=== PATIENT | male | born 1940 | race Caucasian/White ===

== ENCOUNTER 2018-09-10 01:37 | Outpatient (CLI) | payer MEDICARE, BC, SELFPAY ==
[2018-09-10 08:14] LABS: CREATININE 1.19 mg/dL (0.70-1.30); Estimated GFR 58.97 (mL/min/1.73m2); Potassium 4.7 mmol/L (3.5-5.1)
== END 2018-09-10 01:57 ==
PROVIDERS: PCP Family Medicine; Visit Provider Family Medicine
DX: I10 Essential (primary) hypertension (principal); E11.9 Type 2 diabetes mellitus without complications
CPT/HCPCS: 36415; 82565; 83036; 84132

== ENCOUNTER 2018-12-24 07:53 | Outpatient (CLI) | payer MEDICARE, BC, SELFPAY ==
[2018-12-24 08:38] LABS: Hemoglobin A1C 8.3 % (4.5-6.2)
[2018-12-24 09:16] LABS: CREATININE 1.04 mg/dL (0.70-1.30)
== END 2018-12-24 08:13 ==
PROVIDERS: PCP Family Medicine; Visit Provider Family Medicine
DX: E11.9 Type 2 diabetes mellitus without complications (principal)
CPT/HCPCS: 36415; 82565; 83036

== ENCOUNTER 2019-01-23 14:33 | Outpatient (CLI) | payer MEDICARE, BC, SELFPAY ==
--- NOTE | 2019-01-23 14:27 | DI.RAD_ITS ---
SYMPTOMS/DIAGNOSIS: RIGHT HIP PAIN S/P LEFT TOTAL HIP ARTHROPLASTY AP PELVIS: The patient is status post TRAE, the prosthesis in good position, surrounding bone intact.
== END 2019-01-23 14:53 ==
PROVIDERS: PCP Family Medicine; Referring Provider Family Medicine; Visit Provider Orthopaedic Surgery
DX: M25.551 Pain in right hip (principal); Z96.642 Presence of left artificial hip joint
CPT/HCPCS: 99211; 99213; 72170

== ENCOUNTER 2019-02-19 11:02 | Outpatient (CLI) | payer MEDICARE, BC, SELFPAY ==
--- NOTE | 2019-02-19 10:50 | DI.RAD_ITS ---
SYMPTOMS/DIAGNOSIS: RIGHT HIP PAIN RIGHT HIP: Two views were obtained. There is marked loss of the cartilaginous joint space of the hip. Moderate hypertrophic spurring of the acetabulum and to a lesser degree femoral head noted. Mild spurring noted at the greater trochanter of the femur. CONCLUSION: Severe DJD, right hip.
== END 2019-02-19 11:22 ==
PROVIDERS: PCP Family Medicine; Referring Provider Family Medicine; Visit Provider Student in an Organized Health Care Education/Training Program
DX: M25.551 Pain in right hip (principal); M16.11 Unilateral primary osteoarthritis, right hip; E11.9 Type 2 diabetes mellitus without complications; Z79.84 Long term (current) use of oral hypoglycemic drugs; I10 Essential (primary) hypertension
CPT/HCPCS: 99214; 73502

== ENCOUNTER 2019-03-28 09:57 | Outpatient (CLI) | payer MEDICARE, BC, SELFPAY ==
[2019-03-28 11:35] LABS: HCT 38.8 % (40.0-50.0); HGB 12.6 g/dL (13.5-17.5); Mean Corp. HGB Concentration 32.5 g/dL (32.0-36.0); Mean Corpuscular Hemoglobin 30.6 pg (27.0-33.0); Mean Corpuscular Volume 94.2 fL (80-95); Mean Platelet Volume 9.1 fL (8.0-11.0); Platelet Count 271 x1000/uL (130-400); RBC 4.12 m/cumm (4.50-6.00); RBC Distribution Width 14.4 % (11.8-14.1); White Blood Cell Count 7.75 k/cumm (4.4-10.8)
[2019-03-28 12:01] LABS: Anion Gap 11.3 mmol/L (3-11); BUN 17 mg/dL (7-18); CO2 25.7 mmol/L (21.0-32.0); CREATININE 0.85 mg/dL (0.70-1.30); Calcium 9.2 mg/dL (8.5-10.1); Chloride 102 mmol/L (98-107); Glucose 73 mg/dL (70-100); Potassium 4.6 mmol/L (3.5-5.1); Sodium 139 mmol/L (136-145)
--- NOTE | 2019-03-28 15:05 | W.PREOPHP ---
Date of service: 03/28/19 Assessment and Plan (1) Primary osteoarthritis of right hip: Current visit: No Status: Chronic Right total hip replacement. Details of surgery were discussed with patient as well as risks and pertinent anatomy. All questions were answered. History of Present Illness Chief Complaint: Right hip pain Narrative: Russell is a 79-year-old male who comes in today for a preop history and physical for a right total hip replacement. He has been complaining of complaining of right hip pain for many years now. He is a previous patient of Dr. Wright, and has had multiple joint replacements including bilateral knees and a left hip, and has known arthritis of the right hip. He has been dealing with his right hip pain for a couple of years now, but has gotten much worse over the last 6 months or so. He states that he has some difficulty putting on shoes and socks and that he has to use assistive devices in order to be able to put socks and shoes on. He avoids any shoes with laces as he is unable to tie them. He has groin pain especially with prolonged standing or walking, which also bothers him at the end of the day and at night. He does have x-rays of his right hip which show severe arthritis with complete loss of joint space in the hip joint. There are also bone spurs throughout the hip joint including the acetabulum and femoral neck. He has discussed a total hip replacement with Dr. Wright, but since Dr. Wright is retiring, he was referred here for a total hip replacement on the right side. He has done very well from both of his total knee replacements, and his left total hip replacement. Since the pain is starting to get in the way of his daily life, and he has done well from multiple joint replacements in the past, Dr. Carrillo does offer a right total hip replacement, and Russell is anxious to proceed. Pertinent Surgical Information Russell has a history of diabetes which has been pretty well controlled, but his A1c has been rising until December of this year where it was an 8.3. Since then he has started insulin therapy and his glucose monitoring has been much better than it was prior to this. He should have an A1c drawn and interpreted prior to surgery. 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 He has had a left total knee replacement and a right total knee replacement since then. Patient denies history of CVA, MN, angina, asthma, COPD, renal or liver disorders, hepatitis, bleeding disorders, immune or thyroid disorders. No complications from anesthesia. Review of Systems Constitutional Denies fever(s) ENT Denies dizziness and Denies sore throat Cardiovascular Denies chest pain, Denies palpitations and Denies dyspnea Respiratory Denies cough and Denies dyspnea Gastrointestinal Denies abdominal pain, Denies melena, Denies hematochezia, Denies diarrhea, Denies nausea and Denies vomiting Genitourinary Denies hematuria and Denies dysuria Neurologic Denies dizziness Endocrine Denies palpitations PFSH Medical History Diabetes Hyperlipidemia Hypertension Knee pain Overweight Surgical History Arthroplasty of knee Extraction of cataract H/O detached retina repair (Acute) Repair of umbilical hernia Replacement of total knee joint (04/12/16) Total replacement of hip (~2005) Family History Mother Diabetes Father Heart disease Maternal Grandmother Diabetes Personal history of malignant neoplasm Daughter Fibromyalgia Social History Smoking/Tobacco Use Status: Former Tobacco Use Quit Date: 05/02/75 Second Hand Exposure: Yes Alcohol Intake: current Alcohol Intake frequency: 0-2 drinks per day Alcohol type: beer, wine and hard liquor Drug use: Never Caregiver/Support person: No Household members: spouse Housing: house Pets and animals: No Sexually active: No Current gender identity: male What is your relationship status?: How often do you talk on the phone with friends or family?: once per week How often do you get together with friends or relatives?: decline to answer How often do you attend hindu or episcopal services?: decline to answer Do you belong to any clubs or organized social groups?: yes Panel score (0-1 are the most socially isolated patients): 2 Laura/Latter-Day: Orthodoxy Special laura needs: No Meds Home Medications Medication Instructions Recorded Confirmed Type loratadine 10 mg PO DAILY PRN #90 tab-cap 10/25/12 03/28/19 History cyanocobalamin (vitamin B-12) 1,000 mcg PO DAILY 07/06/14 03/28/19 History aspirin 81 mg PO BID tab-cap 10/06/14 03/28/19 History blood sugar diagnostic [Blood #300 strip 06/20/16 03/28/19 History Glucose Test] albuterol sulfate [Proventil Hfa] 2 puff INHALATION Q4H PRN #1 09/11/17 03/28/19 Rx inhaler lisinopril 1 tab PO BID #180 tab 03/19/18 03/28/19 Rx acetaminophen 650 mg 1,300 mg PO BID tab 09/17/18 03/28/19 History tablet,extended release simvastatin 40 mg tablet 40 mg PO QHS #90 tab-cap 09/17/18 03/28/19 Rx nystatin 100,000 unit/gram topical 1 applic TP BID #30 gm 12/09/18 03/28/19 Rx powder dulaglutide 0.75 mg/0.5 mL 0.75 mg SC QWEEK #2 ml 12/10/18 03/28/19 Rx subcutaneous pen injector budesonide 180 mcg/actuation 180 mcg INHALATION BID #3 inhaler 12/13/18 03/28/19 Rx breath activated powder inhaler glimepiride 2 mg tablet 4 mg PO QAM #180 tab-cap 12/13/18 03/28/19 Rx metformin 1,000 mg tablet 1,000 mg PO BID #180 tab-cap 12/13/18 03/28/19 Rx naproxen sodium [Aleve] 440 mg PO BID 03/28/19 03/28/19 History Allergies Allergy/AdvReac Type Severity Reaction Status Date / Time No Known Allergies Allergy Unverified 02/19/19 10:21 Exam [facility] Head: normocephalic and atraumatic General nose exam: no nasal discharge Eyes Conjunctivae: conjunctivae normal Sclera: sclerae normal Resp Effort & Inspection: normal respiratory effort Auscultation: clear to auscultation bilaterally and no wheezes Cardio Rate: regular rate Rhythm: regular rhythm Heart Sounds: S1 normal, S2 normal and no murmurs GI Palpation: soft, no hepatosplenomegaly and nontender Auscultation: normal bowel sounds Results Labs : 03/28/19 11:10 03/28/19 11:10 Laboratory Results - last 24 hr 03/28/19 03/28/19 03/28/19 11:10 11:10 11:10 WBC 7.75 RBC 4.12 L Hgb 12.6 L Hct 38.8 L MCV 94.2 MCH 30.6 MCHC 32.5 RDW 14.4 H Plt Count 271 MPV 9.1 Sodium 139 Potassium 4.6 Chloride 102 Carbon Dioxide 25.7 Anion Gap 11.3 H BUN 17 Creatinine 0.85 Estimated GFR/1.73 m2 >= 60.00 Glucose 73 Calcium 9.2 Patient ABO/Rh O Positive Antibody Screen Negative
== END 2019-03-28 10:17 ==
PROVIDERS: PCP Family Medicine; Visit Provider Student in an Organized Health Care Education/Training Program
DX: M25.551 Pain in right hip (principal); M16.11 Unilateral primary osteoarthritis, right hip; K21.9 Gastro-esophageal reflux disease without esophagitis; J44.9 Chronic obstructive pulmonary disease, unspecified; Z01.812 Encounter for preprocedural laboratory examination; Z01.818 Encounter for other preprocedural examination
CPT/HCPCS: 36415; 80048; 85027; 86850; 86900; 86901; NC

== ENCOUNTER 2019-03-31 08:39 | Outpatient (CLI) | payer MEDICARE, BC, SELFPAY ==
[2019-03-31 12:12] LABS: Hemoglobin A1C 6.5 % (4.5-6.2)
== END 2019-03-31 08:59 ==
PROVIDERS: PCP Family Medicine; Visit Provider Student in an Organized Health Care Education/Training Program
DX: E11.9 Type 2 diabetes mellitus without complications (principal)
CPT/HCPCS: 36415; 83036

== ENCOUNTER 2019-04-08 05:52 | Inpatient (IN) | payer MEDICARE, BC, SELFPAY ==
[2019-04-08] VITALS (18 sets, daily range): BP systolic 85–139; BP diastolic 43–89; PULSE 48–64; RESP 10–20; TEMP 34.8–36.6; O2SAT 93–98
[2019-04-08] MEDS: Acetaminophen 500 MG TAB 1000 MG PO ×3 (06:32→20:22)
[2019-04-08] MEDS: oxyCODONE-CR 10 MG TABCR PO (06:32)
[2019-04-08] MEDS: Celecoxib 200 MG CAP 400 MG PO (06:32)
[2019-04-08] MEDS: Lactated Ringers 1,000 ML 80 ML IV ×3 (06:33→20:53)
[2019-04-08] MEDS: ceFAZolin 2 GM/50 ML BAG IVPB (07:46)
[2019-04-08] MEDS: Normal Saline 20 ML VIAL (09:29)
[2019-04-08] MEDS: Bupivacaine 0.25% Pres-Free 30 ML VIAL (09:29)
[2019-04-08] MEDS: Ketorolac 30 MG/ML VIAL (09:29)
--- NOTE | 2019-04-08 09:40 | DI.RAD_ITS ---
SYMPTOM/DIAGNOSIS: OSTEOARTHRITIS RIGHT HIP C-ARM FLUOROSCOPY: Fluoroscopy Time: 38.2 sec 4.7 mGy Fluoroscopy was provided for Dr. Carrillo in the O.R. Hard copy images show placement of a right hip prosthesis. Please see procedure note for details.
--- NOTE | 2019-04-08 09:46 | W.PM.OP ---
Date of service: 04/08/19 Time of Service: 09:46 Operative Note DATE OF PROCEDURE: 04/08/19 PRE-OP DIAGNOSIS: Right Hip Osteoarthritis POST-OP DIAGNOSIS: same PROCEDURE: Right Anterior Total Hip Arthroplasty SURGEON: Rashaad Carrillo WEIGHT CONTROL ENGINEER: Terry Hall ANESTHESIA: spinal ESTIMATED BLOOD LOSS: 400 PATHOLOGY: none sent COMPLICATIONS: None Patient was transported to: PACU Patient's condition: stable Implants: 1. Depuy Montague Acetabular Component, 56mm 2. Depuy Acetabular Liner, 07a05ps, +4 lateralized 3. Depuy Corail Standard Collared Femoral Stem, Size 14 4. Depuy Altrx Ceramic Femoral Head, Size 36+5mm Indications: I have seen Russell in clinic for symptoms of hip arthritis, confirmed with radiographic findings. He has exhausted nonoperative methods and was having significant limitations in daily function and desired better function and less pain. I discussed the technical details of a hip replacement. I explained the risks of the procedure to include, but not limited to, bleeding, infection, pain, stiffness, fracture, damage to nerves and vessels, damage to muscles and tendons, loosening, instability, leg length inequality, need for repeat procedure, blood clot and cardiopulmonary demise. Despite these risks, Russell elected to proceed. Findings: There was significant signs of arthritis throughout the hip. [Details] Procedure Description: Russell was greeted in the preoperative holding area where the correct side was identified and marked. The consent was reviewed with the patient and signed. The history and physical was updated. All questions were answered. He was taken back to the operating room. A spinal anesthestic was then administered. The patient was placed into the supine position on the operating room table. The patient was then positioned onto the ARCH table. Both feet were wrapped with [place]brill cotton wrap along with Coban. The feet were placed in specialized boots for the ARCH table, well seated within the boot and secured. SCDs were applied. The patient was then slid down onto a peroneal post and the nonoperative leg was secured in a leg sofia attached to the table. The operative side was placed into the ARCH table attachment and bed height and positioning was secured. A preoperative AP pelvis was obtained to serve as a reference for determining leg lengths. Prophylactic antibiotics in the form of Cefazolin were administered. 1g of Tranxemic Acid was given intravenously within 30 minutes of incision. The right leg was then prepped with Chloraprep and draped in a standard fashion with a large shower-curtain type drape with Iodine impregnated skin protection. A timeout to confirm correct identity, side and site, procedure, allergies, anesthesia, and medical concerns was performed. An obliquely oriented incision was made starting lateral to the ASIS and running distal over the Tensor Fascia Zulay (TFL) muscle belly toward the fibular head, approximately 10cm. The skin and soft tissue was dissected sharply, through Paco?s fascia, and to the fascia of the TFL. With the fascia and superior border of the IT band identified, the fascia was incised with a new knife just above any perforators from the IT band. The TFL muscle belly was bluntly dissected away from the fascia and moved laterally. The fat between TFL and rectus was identified to ensure the dissection was not within the TFL. Blunt dissection created space between abductors and the capsule and retractor was placed over the lateral femoral neck. The fibers of the rectus femoris tendon were identified and these were freed from the anterior capsule. A second cobra retractor was placed around the medial femoral neck. The TFL was further retracted laterally to show the deep fascia. Careful dissection through this layer identified three main crossing vessels of the lateral femoral circumflex. These were cauterized in multiple locations and then cut without any noticeable bleeding. The TFL was further released bluntly from the deep fascia to expose anterior hip capsule and fat The Florian orthopaedic retractor was then placed beneath the TFL and against sartorius and medial soft tissues to protect and retract the soft tissues. A T-capsulotomy was then performed starting at the superior lateral acetabulum and moving distally to the intertrochanteric ridge. These capsular flaps were tagged with a No. 1 Ethibond and elevated from within. The capsular flaps were released to the shoulder of the lateral neck and to the lesser trochanter to give excellent visualization of the proximal femur. A neck osteotomy was performed using an oscillating saw based on preoperative templates. This cut started in the shoulder and of the lateral neck and exited medially. The saw was at all times directed medially to avoid injury to the greater trochanter. 6cm of traction was applied to the leg and the osteotomy opened. The femoral head was removed with a corkscrew, making sure to protect the TFL on its exit. This was measured on the back table to determing the starting reamer size. Portions of the rectus obscuring visualization were minimally elevated off the superior acetabulum. An anterior retractor was placed over the anterior wall between capsule and labrum. A posterior retractor was placed similarly. This provided excellent visualization. The contents of the cotyloid fossa were removed with electrocautery and the labrum was removed with a knife. There was a notable floor osteophyte. There was significant chondromalacia of the superior acetabulum. Acetabular reaming began with a 51mm reamer. This first reaming was directed anterior to posterior and medial to get down to the true floor. This was inspected and reamed until the true floor was reached. I then reamed sequentially up to a 55mm reamer where good fit was obtained. The larger reamers were oriented based on anatomical reference of the anterior and lateral white to ensure proper abduction and anteversion. Positioning and size was confirmed with the fluoroscopy. A 56mm Depuy Montague acetabular component was selected. The acetabulum was reamed around the periphery with the selected acetabular size to prevent a rim fit. The deep tissues were irrigated. The acetabular component was then impacted in a position of about 40-45 degrees of abduction and 15-20 degrees of anteversion, using the patient?s anatomy as the ultimate landmark. Fluoroscopy was used to confirm this. There was excellent reefer truck driver of the acetabular component and the inserting handle was removed. The acetabular liner, Depuy [id number] polyethylene liner, was inserted and lined up with the tines of the acetabular component. There was no soft tissue interposition. The liner was then impacted into position and confirmed to be well-seated. A portion of the shakir-articular cocktail was then injected around the acetabulum into the capsule and periosteum. This cocktail consisted of 50cc of 0.25% Bupivicaine and 20cc of Exparel, expanded to a total of 120cc. Traction was released from the femur. The leg was rotated to 120 degrees. Any remaining medial capsule was released until the lesser trochanter was easily palpable. A Arias retractor was placed medially. The lateral capsule was further released into the shoulder to allow access to the greater trochanter. A Arias retractor was placed over the greater trochanter which allowed the trochanter to flip in front of the capsule for excellent exposure. The leg was brought down into maximal extension and 20 degrees of adduction while ensuring there was no impingement on the acetabulum. Any remnant capsule within the trochanter was released. Piriformis and obturator externis were identified and protected. There was excellent access to the proximal femur. The lateral neck remnant was removed with a rongeur. A blunt canal probe was used to identify the canal and trajectory for later broaching. A box osteotome initiated the broach course. A small curved rasp and a curved curette were used to work laterally. Broaching then began with a size 8 Corail broach. This was inserted manually around the trochanter and into the canal before mallet blows. The broach was seated to a few millimeters below the cut level based on the neck cut and the preoperative template. Sequential broaching was continued using the [employer] mechanical swahili teacher until a tight fit was obtained with good rotational control of the femur. A trial standard neck was inserted along with a +5 trial head. The leg was brought out of extension and adduction and then reduced with traction and internal rotation. The leg was stable anteriorly in a position of 30 degrees of extension and 90 degrees of external rotation. Fluoroscopy was used to ensure there was no fracture and the stem was seated well. Leg lengths were checked with an AP pelvis and pelvic reference points. Once content with the desired offset and leg lengths, the leg was brought back into extension, external rotation and adduction. The periosteum and surrounding tissue was injected with remaining portion of the shakir-articular cocktail. The proximal femur was irrigated as well as the deep tissues. The Depuy Corail standard collared stem, size 14, was then manually inserted into the proximal femur making sure to control rotation. It was then malleted into position with light blows, giving breaks to allow bone expansion and decrease risk of fracture. The selected Depuy Altrx Ceramic Head, size 36+5mm, was then placed onto the clean and dry trunnion and secured with impaction onto the tapered fit. The leg was brought back out of extension and adduction and reduced with traction and internal rotation. Stability was confirmed with no shuck at 90 degrees of external rotation and 30 degrees of extension. No impingement through range of motion arc. Final x-ray images were obtained with fluoroscopy to confirm adequate positioning and no intraoperative fracture. The deep tissues were thoroughly irrigated with a pulse lavage. The second dose of TXA 1g was administered intravenously.The capsule was then reapproximated with the previously placed Ethibond sutures. The TFL fascia was finally closed with a No. 2 Stratafix, barbed suture. Deep tissues were then reapproximated with 0 Vicryl and a running 2-0 Vicryl. The skin was closed with a running 4-0 Monocryl in a subcuticular fashion. This was reinforced with skin glue. A Mepilex silver dressing was applied. At the end of the case, all counts were correct. Russell was transferred to the hospital bed without difficulty and suffering no apparent complication. Russell has a good prognosis. Physical therapy will start today and without restrictions, weight-bearing as tolerated. Aspirin 81mg BID will be used for DVT prophylaxis.
--- NOTE | 2019-04-08 10:15 | DI.RAD_ITS ---
SYMPTOM/DIAGNOSIS: S/P RIGHT TRAE PORTABLE PELVIS: The patient is status post placement of a right hip prosthesis. The components appear well aligned. There is a left hip prosthesis which does not appear changed when compared with previous exam of 23 January 2019.
[2019-04-08] MEDS: oxyCODONE 5 MG TAB PO ×2 (13:51→20:48)
--- NOTE | 2019-04-08 16:20 | IN_ITS ---
Date of service: 04/08/19 Time of Service: 13:17 PT Notes Inpatient Physical Therapy Evaluation Date: 04/08/2019 Referring Doctor: Rashaad Carrillo MD PT Orders: PT CONSULT: S/P R Anterior TRAE Precautions: fall. Standard. WBAT on R LE. Patient Profile/Admitting Diagnosis: Patient is a 79-year-old male presenting with primary osteoarthritis of the R hip S/P R Anterior TRAE on POD 0. 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 He states that there is a ramp to enter the home but there is a patch of grass he must maneuver through to approach the ramp. Mr. Shepard states that he has arranged his home to fit all of his needs onto the first floor. He states that once he is comfortable enough, he will return his home back to its normal state and use the (13) stairs. He reports that he was independent with all ADLs prior to the surgery. He reports using a cane for outdoor ambulation only. Current Functional Limitations: Pain with prolonged standing, decreased gait speed, decreased strength of the R LE. Equipment Owned/DME: Front-wheeled walker Subjective: Mr. Shepard reported 0/10 pain while laying supine. He consented to PT treatment. He did not report any dizziness or lightheadedness until he was standing. During ambulation to the door, the patient reported having some nausea, but appeared better when he returned to bed. Objective: General Observation: The patient was seen laying supine in bed with the head of the bed elevated. IV in R UE. Toscano catheter in place. The patient also had Mepilex AG over surgicial incision and bilateral antithrombiembolism pumps to B legs. Mental Status: Alert and oriented x 4 Pain: 0/10 in supine, 3/10 during ambulation Vital Signs: Negative for orthostatic hypotension Position Vitals Supine BP: 122/78mmHg SaO2: 98% on 2L/min HR: 51 BPM Seated BP: 141/70mmHg: SaO2: 99% on 2L/min HR: 52 BPM Standing BP: 133/62mmHg: SaO2: 95% HR: 53 BPM Post 30-foot Walk BP: 128/65mmHg: SaO2: 98% on 2L/min HR: 46 BPM ROM: Right Lower Extremity: Hip flexion WFL. Hip abduction WFL. Knee flexion WFL. Ankle dorsiflexion WFL. Ankle plantarflexion WFL. Left Lower Extremity: Hip flexion WFL. Hip abduction WFL. Knee flexion WFL. Ankle dorsiflexion WFL. Ankle plantarflexion WFL. Strength: Right Lower Extremity: Hip flexors 3-/5. Hip abductors N/T. Knee flexors 5/5. Knee extensors 5/5. Ankle dorsiflexors WFL. Ankle plantarflexors WFL. Left Lower Extremity:Hip flexors 5/5. Hip abductors N/T. Knee flexors 5/5. Knee extensors 5/5. Ankle dorsiflexors 5/5. Ankle plantarflexors 5/5. Sensation: N/T due to spinal anesthetic. Bed Mobility/Transfers: Rolling: S Supine to sit: S Sit to supine: S Sit to stand: S Stand to sit: CGA Bed to chair: CGA Chair to bed: CGA Gait: Patient tolerated 30 feet of level surface ambulation with a front-wheeled walker with CGA and minimal verbal cues to instruct the patient for use of the assistive device during gait activities. The patient reported lightheadedness and nausea while returning to the bed. He was instructed through pursed-lip breathing and successfully transferred back to bed with minimal assistance. Balance: Static Sitting: Good Dynamic Sitting: Good Static Standing: Good Dynamic Standing: Fair Special Tests: Mobility Limitations Standardized Measure [facility] AM-PAC 6 clicks Basic Mobility Inpatient Short Form: Raw Score: 19 CMS Score: 43% Informed Consent/Education: Patient instructed in purpose of PT consult and plan of care. Patient was instructed to perform 30 ankle pumps, 10 quad sets, and 10 glute sets per hour. Assessment: Patient presents with clinical signs and symptoms consistent with current/admitting diagnoses that have resulted to mobility limitations, gait instability, generalized weakness, and impairment of motor control as d emonstrated by the following impairment level findings: 1. Decreased strength to R LE major muscle groups 2. Impaired activity tolerance 3. Decreased gait speed Impairments are contributing to the following functional limitations: 1. Inability to safely ambulate without assistive device and physical assistance 2. Increase completion time for mobility ADL performance 3. Increased fall risk Patient is assessed as a 56532 moderate complexity based on the following: History: Patient is an 79-year-old male with past medical history of arthritis with increasing pain and diminishing acetabulofemoral joint space diagnosed via radiographs. He presented to med/surg unit on 04/08/2019 with chief presentation of post-operative mobility impairments. Examination: Demonstrable impairment in balance, coordination and strength deficit with underlying impairments and functional limitations as documented above Presentation: Evolving Decision Makin moderate complexity Goals: 1-3 Days 1. Supine-Sit independent 2. Sit-Supine independent 3. Sit-Stand independent 4. Stand-Sit independent 5. Bed-Chair independent 6. Chair-Bed independent 7. Independent gait on level surface with use of least restrictive device for at least 300 feet without report of pain nor dyspnea 8. Independent with home exercise program 9. Good static and dynamic standing balance/tolerance. Plan of Care/Treatment Plan: 2x/day, 2-3 days/week x 1 week. Plan of care has been reviewed with the RUBBER CUTTER providing the service under Physical Therapy direction. Initiate Physical Therapy intervention for strengthening, bed mobility, transfers, gait, stairs, balance training, use of assistive device. DISCHARGE RECOMMENDATIONS: May benefit from skilled physical therapy services according to orthopedic surgeon's timeline recommendations. Patient will be educated and trained on home exercise program per TKA exercise protocol in preparation for outpatient physical therapy services. Patient will be discharged to home under the care of his after all of the above goals are met. TREATMENT CODE/TIME: 08743 x 35 minutes at 13:17, 61630 x 15 minutes at 13:52. Thank you very much for this referral. Renzo Overton, [facility] Duplicating Machine Servicer Under the supervision of: Gloria Nation PT, DPT, CLT [facility]
--- NOTE | 2019-04-08 16:25 | NUR.NOTE ---
Pt transferred to rm 229 post op right hip via bed from PACU, report from RN, Roula. Pt A&O x4, denies pain, settled in room, post op vitals initiated, call pan with in reach, in .
[2019-04-08] MEDS: Insulin Aspart 300 UNITS/3 ML PEN SC (17:08)
[2019-04-08] MEDS: Celecoxib 200 MG CAP PO (20:23)
[2019-04-08] MEDS: Aspirin E.C. 81 MG TABEC PO (20:23)
[2019-04-08] MEDS: Simvastatin 40 MG TAB PO (20:23)
[2019-04-09 02:20] VITALS: BP 113/63; PULSE 61; RESP 17; TEMP 36.5; O2SAT 93
[2019-04-09 07:32] VITALS: BP 121/66; PULSE 62; RESP 18; TEMP 36.7; O2SAT 96
[2019-04-09] MEDS: Mometasone 220 MCG 14 DOSE INHALER IH (07:50)
[2019-04-09] MEDS: Pantoprazole 40 MG TABCR PO (08:29)
[2019-04-09] MEDS: Celecoxib 200 MG CAP PO (08:29)
[2019-04-09] MEDS: Glimepiride 2 MG TAB 4 MG PO (08:29)
[2019-04-09] MEDS: metFORMIN 500 MG TAB 1000 MG PO (08:29)
[2019-04-09] MEDS: Cyanocobalamin 500 MCG TAB 1000 MCG PO (08:30)
[2019-04-09] MEDS: Aspirin E.C. 81 MG TABEC PO (08:30)
[2019-04-09] MEDS: Acetaminophen 500 MG TAB 1000 MG PO ×2 (08:30→13:56)
[2019-04-09] MEDS: Lisinopril 20 MG TAB PO (08:30)
[2019-04-09] MEDS: Insulin Aspart 300 UNITS/3 ML PEN SC ×2 (08:31→11:47)
[2019-04-09 09:30] VITALS: RESP 16
[2019-04-09] MEDS: oxyCODONE 5 MG TAB PO (09:52)
[2019-04-09 10:52] VITALS: RESP 16
--- NOTE | 2019-04-09 11:03 | PT.INTREAT ---
Date of service: 04/09/19 Time of Service: 11:03 PT Notes Inpatient Physical Therapy Treatment Note [facility] Date: 04/09/2019 PRECAUTIONS: Fall, WBAT R SUBJECTIVE: Don states that he is feeling pretty good this morning, although he does indicate that he is having a little bit of increased pain in his right hip this morning versus yesterday. He is hopeful that he will be discharged home this afternoon. OBJECTIVE: PAIN: Patient complained of minimal soreness in the right hip with ther ex and transfers BED MOBILITY/TRANSFERS Supine-sit: I with HOB flat Sit-supine: I with HOB flat Sit-stand: S Stand-sit: S Chair-bed: S GAIT Assistive Device: FWW Weight bearing: WBAT R Assist: S Distance: 175' Deviation: Demonstrates appropriate pacing THEREX: Patient completed a LE strengthening program, in a seated position, as per flow sheet. STAIRS: Up/down 3x4 and 2x6 using B rails and a step-to/over pattern with supervision. ASSESSMENT: Patient tolerated session well with minimal complaint of R hip soreness with ther ex and transfers. Patient was able to tolerate a progression in gait distance with FWW support and supervision. PLAN: As per primary PT TREATMENT CODE/TIME: 25 minutes; 14988, [id number]
[2019-04-09 11:22] VITALS: BP 114/63; PULSE 63; RESP 18; TEMP 37; O2SAT 96
--- NOTE | 2019-04-09 12:49 | W.PM.DS.N ---
Date of service: 04/09/19 Time of Service: 12:49 DS: Diagnosis Discharge Diagnosis (1) Primary osteoarthritis of right hip: Status: Chronic Discharge Plan Disposition Patient Disposition: HOME Condition: Good Discharge Details Reason For Visit: RIGHT HIP DJD Admit Date/Time: 04/08/19 05:52 Admit Provider: Rashaad Carrillo Attending Provider: Rashaad Carrillo Primary Care Provider: Sukumar Horan Hospital Course Hospital Course: Patient was admitted to the medical/surgical floor following the procedure. It was tolerated well without any notable medical, surgical, or anesthetic complications. Mobilization began postoperatively. The celis catheter was removed and voiding spontaneously. Vitals were stable. Physical therapy worked with the patient and was cleared for discharge home. No acute medical issues. Home Meds and New Rx's Prescriptions: New acetaminophen 500 mg tablet 1,000 mg PO Q8H PRN (Reason: pain) Qty: 90 RF: 3 celecoxib 200 mg capsule 200 mg PO BID PRN (Reason: pain) Qty: 60 RF: 1 oxycodone 5 mg tablet 5 mg PO Q4H PRN (Reason: pain) Qty: 12 RF: 0 pantoprazole 40 mg tablet,delayed release (DR/EC) 40 mg PO DAILY Qty: 30 RF: 0 Continued simvastatin 40 mg tablet 40 mg PO QHS Qty: 90 RF: 3 albuterol sulfate [Proventil HFA] 6.7 GM HFA aerosol inhaler 2 puff Inhalation Q4H PRN Qty: 1 RF: 2 lisinopril 20 MG tablet 1 tab PO BID Qty: 180 RF: 4 Trulicity 0.75 mg/0.5 mL pen injector 0.75 mg SC QWEEK Qty: 2 RF: 11 Pulmicort Flexhaler 180 mcg/actuation aerosol powdr breath activated 180 mcg Inhalation BID Qty: 3 RF: 3 glimepiride 2 mg tablet 4 mg PO QAM Qty: 180 RF: 4 metformin 1,000 mg tablet 1,000 mg PO BID Qty: 180 RF: 4 cyanocobalamin (vitamin B-12) 1,000 MCG tablet 1,000 mcg PO DAILY RF: 0 aspirin 81 MG tablet,delayed release (DR/EC) 81 mg PO BID Qty: 60 RF: 0 Discontinued acetaminophen [Tylenol 8 Hour] 650 mg tablet extended release 1,300 mg PO BID RF: 0 loratadine 10 MG tablet 10 mg PO DAILY PRNQty: 90 RF: 4 nystatin 100,000 unit/gram powder 1 applic TP BID Qty: 30 RF: 1 naproxen sodium [Aleve] 220 mg Capsule 440 mg PO BID RF: 0 No Action (DME) Blood Glucose Test 1 EACH strip 1 strip AD BID Qty: 300 RF: 4 Discharge Instructions Additional Instructions: Dr. Carrillo?s Total Hip Discharge Instructions Activity: The most important activity is to walk. You should try to take short walks a few times a day. You have no restrictions on movement or positioning, but do not try to force what you do. You will find some stiffness and weakness with hip flexion (lifting your knee). Do not try to strengthen this too early, continue to practice walking and stairs and this will come. - Outpatient physical therapy can be helpful to help return you to a normal gait and improve your flexibility and strength. This can start around 2 weeks. For some patients, it?s not necessary. Usually this is determined at the time of discharge or at the first post-operative visit. - You should wear the CURTIS hose on both legs for 2 weeks. Dressing: Keep the surgical dressing in place for at least one week. After the first week it may be removed and replace with light gauze and tape or nothing. It may get wet after 3 days but avoid soaking the dressing. If it gets wet, just lightly pat dry. It is important to always keep some gauze between skin folds, especially when you are sitting. Spend some time with the wound exposed when you are lying flat as the incision does wrinkle onto itself. Medications: - You should take Tylenol and an anti-inflammatory Celebrex as your primary pain control medications - You have been prescribed a stronger pain medication Oxycodone for breakthrough pain, take as needed as prescribed. - You have also been prescribed a stomach acid reduction agent Pantoprozole to help reduce stomach acid and reflux. - You will be taking Aspirin 81mg twice a day for DVT prevention unless instructed otherwise. - If you have constipation you should take Colace or Miralax (both [id number]). It takes most people 3-4 days to have a bowel movement. Follow-up: 2 weeks Referrals: Rashaad Carrillo MD [ [facility] STAFF PHYSICIAN] - Activity:: Activity as Tolerated Equipment/Supplies:: No Equipment Needed Diet:: As Tolerated Discharge Orders Discharge Orders: Discharge Order (Routine); Ordered 04/09/19 Ordered By: Rashaad Carrillo DS: Data Vitals/I&O Vitals and I&O: Vital Signs Temperature 36.7 C 04/09/19 07:32 Temperature Source Tympanic 04/09/19 02:20 Pulse 62 04/09/19 07:32 Pulse Rhythm Regular 04/09/19 09:39 Respiratory Rate 16 04/09/19 10:52 Respiratory Effort Non-Labored 04/09/19 09:39 Respiratory Depth Normal 04/09/19 09:39 Respiratory Pattern Normal 04/09/19 09:39 Blood Pressure 121/66 04/09/19 07:32 Pulse Oximetry 96 04/09/19 07:32 Respiratory End-tidal CO2 32 04/08/19 11:10 Oxygen Delivery Method Room Air 04/09/19 07:32 Oxygen Flow Rate 0 04/09/19 07:32 Pain Level 2 04/09/19 10:52 Comment 04/09/19 02:20 Intake & Output 04/08/19 04/09/19 04/09/19 23:59 11:59 23:59 Intake Total 1140 / 2608.667 1790 / 1790 Output Total 2200 / 2200 Balance 1140 / 1808.667 -410 / -410 Intake: IV 900 / 2268.667 1100 / 1100 Oral 240 / 340 690 / 690 Output: Urine 2200 / 2200 Other: Urine Color Pale Yellow Urine Appearance Clear Clear [facility] Social History Smoking/Tobacco Use Status: Former Tobacco Use Quit Date: 05/02/75 Second Hand Exposure: Yes Alcohol Intake: current Alcohol Intake frequency: 0-2 drinks per day Alcohol type: beer, wine and hard liquor Drug use: Never Caregiver/Support person: No Household members: spouse Housing: house Pets and animals: No Sexually active: No Current gender identity: male What is your relationship status?: How often do you talk on the phone with friends or family?: once per week How often do you get together with friends or relatives?: decline to answer How often do you attend oriental orthodox or orthodox services?: decline to answer Do you belong to any clubs or organized social groups?: yes Panel score (0-1 are the most socially isolated patients): 2 Laura/Latter-Day: Confucianism Special laura needs: No
--- NOTE | 2019-04-09 14:13 | CHAPLAIN ---
I visited with Rafiq this morning and he was thinking he may be going home today. This is his second hip replacement (and he's had two knees replaced) and he takes these things in stride. He said he did some probably foolish things before having his hip replaced, but he doesn't like to be slowed down. 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 He lives in [place] with his , María, also a retired [employer] clergy. This summer both of their children and grandchildren spent time with them and that was a highlight for Rafiq.
--- NOTE | 2019-04-09 14:35 | PT.INDS ---
Date of service: 04/09/19 Time of Service: 14:36 PT Notes Inpatient Physical Therapy Discharge Summary Dates: 04/09/2019 Dates of Service: 04/08-04/09/2019 This is a clinical summary of care provided on the duration of dates listed above. No charge was made in the completion of this documentation. Referring Doctor: Rashaad Carrillo MD PT Orders: PT CONSULT: S/P R Anterior TRAE Precautions: fall. Standard. WBAT on R LE. Patient Profile/Admitting Diagnosis: Patient is a 79-year-old male presenting with primary osteoarthritis of the R hip S/P R Anterior TRAE on POD 0. 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 Hip abduction WFL. Knee flexion WFL. Ankle dorsiflexion WFL. Ankle plantarflexion WFL. Left Lower Extremity: Hip flexion WFL. Hip abduction WFL. Knee flexion WFL. Ankle dorsiflexion WFL. Ankle plantarflexion WFL. Strength: Right Lower Extremity: Hip flexors 3-/5. Hip abductors N/T. Knee flexors 5/5. Knee extensors 5/5. Ankle dorsiflexors WFL. Ankle plantarflexors WFL. Left Lower Extremity:Hip flexors 5/5. Hip abductors N/T. Knee flexors 5/5. Knee extensors 5/5. Ankle dorsiflexors 5/5. Ankle plantarflexors 5/5. Sensation: N/T due to spinal anesthetic. Bed Mobility/Transfers: Supine to sit: I Sit to supine: I Sit to stand: S Stand to sit: S Chair to bed: S Gait: Patient tolerated 175 feet of level surface ambulation with a front-wheeled walker with S and minimal verbal cues to instruct the patient for use of appropriate pacing. The patient ascended and descended three 4-inch steps and two 6-inch steps with bilateral rails using both a step-to and step-over gait pattern having only supervision-level assistance. Balance: Static Sitting: Good Dynamic Sitting: Good Static Standing: Good Dynamic Standing: Fair Assessment: Patient continues to present with clinical signs and symptoms consistent with current/admitting diagnoses that have resulted to mobility limitations, gait instability, generalized weakness, and impairment of motor control as demonstrated by the following impairment level findings: 1. Decreased strength to R LE major muscle groups 2. Impaired activity tolerance 3. Decreased gait speed Impairments are contributing to the following functional limitations: 1. Inability to safely ambulate without assistive device and physical assistance 2. Increase completion time for mobility ADL performance 3. Increased fall risk Goals: 1-3 Days 1. Supine-Sit independent Met 2. Sit-Supine independent Met 3. Sit-Stand independent Not met 4. Stand-Sit independent Not met 5. Bed-Chair independent Not met 6. Chair-Bed independent Not met 7. Independent gait on level surface with use of least restrictive device for at least 300 feet without report of pain nor dyspnea Not met 8. Independent with home exercise program Not met 9. Good static and dynamic standing balance/tolerance. Not met DISCHARGE RECOMMENDATIONS: May benefit from skilled physical therapy services according to orthopedic surgeon's timeline recommendations. Patient will be educated and trained on home exercise program per TKA exercise protocol in preparation for outpatient physical therapy services. Patient will be discharged to home under the care of his after all of the above goals are met. TREATMENT CODE/TIME: SD Thank you very much for this referral. Renzo Overton, [facility] Electrical Engineering Director Under the supervision of: Gloria Nation PT, DPT, CLT [facility]
== END 2019-04-09 14:55 | disposition home or self-care (01) | DRG 470 ==
LOC: PDS 05:53 → MS 10:01
PROVIDERS: Admitting Provider Student in an Organized Health Care Education/Training Program; PCP Family Medicine; Visit Provider Student in an Organized Health Care Education/Training Program
PROC: 0SR904A Replacement of Right Hip Joint with Ceramic on Polyethylene Synthetic Substitute, Uncemented, Open Approach (ICD-10-PCS; CPT 27130; principal; 2019-04-08 07:30)
DX: M16.11 Unilateral primary osteoarthritis, right hip (principal); M25.551 Pain in right hip; Z96.641 Presence of right artificial hip joint; Z96.653 Presence of artificial knee joint, bilateral; E11.9 Type 2 diabetes mellitus without complications; I10 Essential (primary) hypertension; E78.5 Hyperlipidemia, unspecified
CPT/HCPCS: 27130; 94640; 97110; 97162; 97530; NC; 72170; 73501; J0690; J1885; J2250; J2405; J3010

== ENCOUNTER 2019-04-25 09:37 | Outpatient (CLI) | payer MEDICARE, BC, SELFPAY ==
--- NOTE | 2019-04-25 09:32 | DI.RAD_ITS ---
SYMPTOM/DIAGNOSIS: 1ST POST OP RT TRAE PELVIS AND RIGHT HIP: Comparison is made with 08 April 2019 There has been no change in the right hip prosthesis or surrounding bone. The left hip prosthesis also appears unchanged.
== END 2019-04-25 09:57 ==
PROVIDERS: PCP Family Medicine; Visit Provider Student in an Organized Health Care Education/Training Program
DX: M16.11 Unilateral primary osteoarthritis, right hip (principal); Z96.641 Presence of right artificial hip joint; Z47.1 Aftercare following joint replacement surgery; E11.9 Type 2 diabetes mellitus without complications; I10 Essential (primary) hypertension; Z79.84 Long term (current) use of oral hypoglycemic drugs
CPT/HCPCS: 73502

== ENCOUNTER → 2019-05-26 09:11 | Outpatient (BNVA) | payer MEDICARE, BC, SELFPAY | PROVIDERS: PCP Family Medicine; Referring Provider Family Medicine; Visit Provider Student in an Organized Health Care Education/Training Program | DX: Z47.1 Aftercare following joint replacement surgery (principal); Z96.641 Presence of right artificial hip joint; I10 Essential (primary) hypertension; E11.9 Type 2 diabetes mellitus without complications ==

== ENCOUNTER 2019-09-05 00:12 | Outpatient (CLI) | payer MEDICARE, BC, SELFPAY ==
[2019-09-05 08:43] LABS: Hemoglobin A1C 6.6 % (3.8-5.6)
== END 2019-09-05 00:32 ==
PROVIDERS: PCP Family Medicine; Visit Provider Family Medicine
DX: E11.9 Type 2 diabetes mellitus without complications (principal)
CPT/HCPCS: 36415; 83036

== ENCOUNTER 2020-03-30 02:45 | Outpatient (CLI) | payer MEDICARE, BC, SELFPAY ==
[2020-03-30 08:15] LABS: Hemoglobin A1C 6.9 % (3.8-5.6)
[2020-03-30 08:41] LABS: CREATININE 0.96 mg/dL (0.70-1.30); Calculated LDL 63 mg/dL (<100); Cholesterol 137 mg/dL (<200); HDL Cholesterol 52 mg/dL (40-60); Potassium 4.9 mmol/L (3.5-5.1); Triglyceride 113 mg/dL (<150)
[2020-04-02 11:47] LABS: Ferritin 78 ng/mL (26-388)
[2020-04-02 12:01] LABS: Iron 83 ug/dL (65-175)
[2020-04-05 08:29] LABS: Vitamin B12 411 pg/mL (211-911)
== END 2020-03-30 03:05 ==
PROVIDERS: PCP Family Medicine; Visit Provider Family Medicine
DX: I10 Essential (primary) hypertension (principal); E78.5 Hyperlipidemia, unspecified; R73.9 Hyperglycemia, unspecified; D64.9 Anemia, unspecified
CPT/HCPCS: 36415; 80061; 82565; 82607; 82728; 83036; 83540; 84132

== ENCOUNTER → 2020-07-06 09:03 | Outpatient (BNVA) | payer MEDICARE, BC, SELFPAY | PROVIDERS: PCP Family Medicine; Referring Provider Family Medicine; Visit Provider Student in an Organized Health Care Education/Training Program | DX: M19.011 Primary osteoarthritis, right shoulder (principal); M24.511 Contracture, right shoulder; M75.21 Bicipital tendinitis, right shoulder; E11.9 Type 2 diabetes mellitus without complications; I10 Essential (primary) hypertension | CPT/HCPCS: 99214 ==

== ENCOUNTER 2020-07-19 01:00 | Outpatient (CLI) | payer MEDICARE, BC, SELFPAY ==
--- NOTE | 2020-07-19 07:30 | DI.CT_ITS ---
EXAM: CT UPPER EXTREMITY RT WO CLINICAL HISTORY: ARTHRITIS RT GLENOHUMERAL JOINT,TSA TEMPLATING,BONE WINDOW AXIAL TECHNIQUE: Imaging Protocol: Axial computed tomography images with coronal and sagittal reformatted images were created and reviewed. CONTRAST MATERIAL: None COMPARISON: CR XR SHOULDER RT COMPLETE 2+V from 05/28/2020 FINDINGS: Bones: There are no fractures. There are advanced osteoarthritic degenerative changes in the glenohumeral j oint with advanced joint space narrowing, more so anteriorly than posteriorly and there is also a lar ge abdullahi-type osteophyte on the inferior articular surface of the humeral head. Marginal osteophytes also noted. No obvious loose intra-articular body. No ominous osseous lesions. 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 RADIATION DOSE DELIVERED: 589.23mGy.cm Total DLP DATA REPOSITORY: All CT scans at this facility are submitted to the National Radiology Data Registry (NRDR) Dose Index Registry (DIR) with the [employer] ([employer]). RADIATION OPTIMIZATION: All CT scans at this facility use at least one of these dose optimization te chniques: automated exposure control; mA and/or kV adjustment per patient size (includes targeted exa ms where dose is matched to clinical indication); or iterative reconstruction.
== END 2020-07-19 01:20 ==
PROVIDERS: PCP Family Medicine; Visit Provider Student in an Organized Health Care Education/Training Program
DX: M19.011 Primary osteoarthritis, right shoulder (principal)
CPT/HCPCS: 73200

== ENCOUNTER → 2020-09-01 09:26 | Outpatient (BNVA) | payer MEDICARE, BC, SELFPAY | PROVIDERS: PCP Family Medicine; Referring Provider Family Medicine; Visit Provider Student in an Organized Health Care Education/Training Program | DX: M19.011 Primary osteoarthritis, right shoulder (principal); M24.511 Contracture, right shoulder; M75.21 Bicipital tendinitis, right shoulder | CPT/HCPCS: 99214; 99215 ==

== ENCOUNTER 2020-09-06 04:48 | Outpatient (CLI) | payer MEDICARE, BC, SELFPAY ==
[2020-09-08 11:16] LABS: COVID-19 RT-PCR UVMMC Result Negative (Negative)
== END 2020-09-06 05:08 ==
PROVIDERS: PCP Family Medicine; Visit Provider Student in an Organized Health Care Education/Training Program
DX: Z11.52 Encounter for screening for COVID-19 (principal); Z01.818 Encounter for other preprocedural examination
CPT/HCPCS: U0003

== ENCOUNTER → 2020-09-09 07:54 | Outpatient (BNVA) | payer MEDICARE, BC, SELFPAY | PROVIDERS: PCP Family Medicine; Referring Provider Family Medicine; Visit Provider Student in an Organized Health Care Education/Training Program | DX: R69 Illness, unspecified (principal) ==

== ENCOUNTER 2020-09-09 09:32 | Inpatient (IN) | payer MEDICARE, BC, SELFPAY ==
[2020-09-09] VITALS (9 sets, daily range): BP systolic 107–147; BP diastolic 41–87; PULSE 58–79; RESP 16–23; TEMP 36.4–36.5; O2SAT 88–98
[2020-09-09] MEDS: Lactated Ringers 1,000 ML 100 ML IV ×2 (10:47→17:25)
--- NOTE | 2020-09-09 11:45 | DI.RAD_ITS ---
EXAM: XR SHOULDER RT COMPLETE 2+V CLINICAL HISTORY: Postop. TECHNIQUE: 2D digital imaging was performed. COMPARISON: 05/28/2020 x-ray FINDINGS: There is satisfactory position alignment of the components of the newly placed reverse prosthesis. N o fracture or loosening evident. IMPRESSION: DATA REPOSITORY: RADIATION DOSE DELIVERED:
[2020-09-09] MEDS: ceFAZolin 2 GM/50 ML BAG IVPB (12:27)
[2020-09-09] MEDS: Bacitracin 30 GM TUBE (16:07)
--- NOTE | 2020-09-09 16:59 | ROE_ITS ---
Date of service: 08/27/20 Time of Service: 13:00 Operative Note Operative Note DATE OF PROCEDURE: 08/27/20 PRE-OP DIAGNOSIS: Right shoulder: 1. Rotator cuff arthopathy 2. Long head of the biceps tendinopathy 3. Contracture POST-OP DIAGNOSIS: same PROCEDURE: Right: 1. Reverse total shoulder arthroplasty, CPT # 31120 2. Open biceps tenodesis, CPT # 76128 3. Open capsular contracture release, CPT # 79282 The assistant women's basketball coach was medically required as this procedure involves retraction, protection of neurovascular structures, and manipulation of multiple instruments and implants at the same time, which cannot be done without a skilled assistant women's basketball coach. SURGEON: Ej Pope PIN MACHINE OPERATOR: Haritha Means ANESTHESIA: GETA and regional ESTIMATED BLOOD LOSS: 200 PATHOLOGY: none sent TOURNIQUET TIME: 0 COMPLICATIONS: None Patient was transported to: PACU Patient's condition: stable Implants: [employer] modular glenoid system baseplate 24 mm, 20 degree full augment [employer] modular glenoid system central post 25 mm [employer] modular glenoid system peripheral 4.5 mm cortical screws 24 mm inferior, 24 mm superior, and 5.5 mm locking screws 24 mm posterior, 24 mm anterior [employer] modular glenoid system glenosphere 42 +4 mm lateralized [employer] humeral stem 135 degrees size 8 [employer] suture cup size 42 posterior offset [employer] humeral insert size 42 +3 mm Indications: Please see complete medical record for details. Findings: Significant stiffness under anesthesia external rotation in abduction barely 0 degrees, forward elevation barely 90 degrees and internal rotation significant mechanical symptoms past 45 degrees. Marked shoulder contracture and glenoid bone loss significant posterior eccentric deformity. An anterior capsular subscapularis thickening and contracture. Impressive inferior humeral head osteophyte, significant humeral head flattening, and glenoid completely devoid of cartilage. Significant long head of the biceps partial tearing, fraying, and injection. Majority supraspinatus full-thickness chronic tearing. Partial infraspinatus tear, intact teres minor. Procedure Description: In the operating room, general anesthesia was induced. The patient was positioned beachchair on the operating room table. All bony prominences were well-padded. Preoperative antibiotics and TXA were administered. The shoulder was prepped and draped in the usual sterile fashion for shoulder arthroplasty. The correct patient, procedure, and side of the procedure were all verified prior to incision. The deltopectoral approach was taken to the anterior shoulder. Care was taken to bluntly dissect the interval between the deltoid and pectoralis major muscles and to identify the cephalic vein within its fat stripe. The the vein was mobilized medially. Subdeltoid space and conjoined tendon were freed of adhesions. The long head of the biceps tendon was identified just lateral to the lesser tuberosity. The uppermost margin of the pectoralis major tendon was released from the proximal humerus. The long head of the biceps tendon was tenodesed in situ using #2 FiberWIre in a lrugiq-of-lxnjo fashion securing it superior margin the pectoralis major tendon. The biceps tendon was amputated and followed proximally to identify the rotator interval. A subscapularis peel was performed taking care to release the entirety tendon remant in a full- thickness fashion from superior to inferior and lateral to medial while bringing the arm gradually into external rotation. Care was taken to avoid the axillary nerve by only working on the bone inferiorly and medially. The degenerative contracted subscapularis was tagged using SutureTape in a Jostin-David fashion wi th stitch was placed superiorly, middle, and inferiorly at the medial footprint of the tendon. The stitches were used to confirm appropriate mobilization of the subscapularis tendon after gentle blunt dissection was used to free up the space anterior and posterior to it. Appropriate coagulation was achieved especially inferiorly. The surgical neck was cut using an oscillating saw and the head bone brought back table in case there was a need for future bone grafting. The proximal humeral protection plate was used to provisionally confirm suture cup and glenosphere size and then gently impacted over the bone cut. Attention was then turned to the glenoid and retractors were placed and a 360 degree release performed using the long head of the biceps remnant to remove soft tissue about the glenoid rim. The axillary nerve was palpated but not exposed inferior and traversing from beneath the subscapularis tendon appropriately below the scapular neck heading posteriorly. Care was taken i nferiorly to work on bone only between 5 and 7:00 o'clock and bluntly elevate tissues inferiorly. The glenoid rim was cleared of labral and soft tissue. There was profound anterior capsular thickening contracture. Adhesions of the subscapularis anteriorly inferiorly and anteriorly superiorly. Combinations of careful blunt and sharp dissection were used to free up anterior and posterior to the subscapularis as well as dissect and remove pathologic anterior capsule from the anterior glenoid neck progressive mobilization of the humerus posteriorly and into external rotation. Similarly the superior and posterior spaces were freed up staying closer to the glenoid rim of thickened and pathologic capsule and removing neck rotator cuff tear tissue and reducing greater tuberosity, posterior humeral head, and inferior humeral head osteophytes. The proximal humerus was mobilized now far into external rotation with greater excursion posteriorly and lastly inferiorly after completing careful inferior glenoid and scapular neck capsular release. Once adequate exposure had been achieved, the VIP guide was placed on the glenoid and used to confirm placement and trajectory of the central guidepin. The guidepin was inserted through the VIP guide and advanced just into the far cortex ensuring adequate central screw length. Depth gauge was used to confirm appropriate central screw length. The 20 degree glenoid defect size was used to confirm planned augmented baseplate. Carefully the position of the greatest deformity and 180 degrees from that point were marked using a marking pen and Bovie cautery. Due to the sclerotic bone present the airline pilot/first officer drill was used prior to reaming. The glenoid was reamed using the appropriate 20 degree for wedge reamer taking care to orient it appropriately. There was appropriate reaming for augmented baseplate and eccentrically more bone removed anteriorly and inferiorly as planned. The reamed surface was assessed with the augment trial and trajectory of the defect confirmed again with appropriate seating on the prepared glenoid surface. The central reamer was then used for the full length of the central post and withdrawn with the guidewire confirming appropriate length. The baseplate was assembled then impacted carefully maintaining the correct orientation until it was flush with the glenoid surface. Testing the glenoid baseplate with good seating and stability with movement resulted in movement through the entire scapula. The over baseplate reamer was used to achieve adequate peripheral reaming. The nonlocking guide was used to place an inferior baseplate screw, depth gauge confirmed length, and this screw provisionally tightened with excellent compressive fixation strength further securing baseplate to bone and ensuring no loss of inferior tilt. In a similar fashion an additional nonlocking screw was placed superiorly with good bicortical fixation as well. Next, the locking guide and drill were used to drill for posterior and anterior baseplate locking screws. The depth gauge was used to confirm appropriate screw length and they were each securely tightened. The preselected lateralized glenosphere was applied with the er nurse and then impacted to engage the Ruiz taper. It was then locked with appropriate countersinking of the setscrew. The glenosphere was inspected and found to have good fit, appropriate positioning, and no soft tissue or bony impingement especially inferiorly. Attention was then turned back to the proximal humerus, which was delivered from the wound and maintained in external rotation. The protective plate was removed and reamers were started appropriately posterior to the bicipital groove taking care to maintain lateralized alignment so as to be straight in line with the h umeral canal. Reaming was done up to size 8. The broaches were sequentially used to open the proximal humerus starting with a size 5 and going up to size 8 and sunk to the appropriate depth while maintaining approximately 25 degrees retroversion. The size 8 had good metaphyseal fit and rotational control the humerus. A posterior offset guide was used to ream for the suture cup. The humeral trial cup was connected. Trialing was commenced with +3mm. The shoulder was reduced and taken through range of motion. The shoulder was reduced and felt to have excellent stability with appropriate tension of the deltoid and conjoined tendon. Range of motion was tested past 90 degrees forward elevation, 75 degrees external rotation, internal rotation to the patient's side, and there was no appreciable impingement or notching with the arm in full adduction. This combination of implants was stable even with the patient completely paralyzed. The trial components were removed from the proximal humerus. The wound was copiously irrigated with normal saline. A 2 mm drill was used to drill 2 drill holes in the lessor tuberosity for later subscapularis suture passage repair. The the proximal humeral stem and suture cup were assembled on the back table. They were brought over to the proximal humerus. The upper SutureTape sutures from the subscapularis were passed through a suture cup hole and then through the superior drill hole, and the middle and lower SutureTape sutures through the upper and lower drill holes. Humerus and suture cup were appropriately impacted into the proximal humerus. They were tested and found of excellent rotational control and fixation. Trial reduction for stability and range of motion was done again with the +3 mm liner confirming correct stability. The trial liner was removed and the definitive liner connected. Shoulder was reduced and these final implants demonstrated excellent range of motion and stability. The shoulder was copiously irrigated with normal saline and then irrisept. Vancomycin powder was distributed deeply about the shoulder and through subcutaneous tissues. The arm was placed in 55 degrees of external rotation. The subscapularis although released was significantly contracted and unable to be reduced without undue tension to the lesser tuberosity unless the arm was placed near neutral., There was adequate excursion with the arm in about 45 degrees external rotation to repair the mid substance of the subscapularis over the suture cup so the previously placed stitches were used for traction and an additional #2 FiberWire placed in a Jostin-David fashion securing the subscapularis and anterior capsule to hole in the anterior suture cup implant. The other subscapularis sutures were removed. The arm was taken past 60 degrees of external rotation without any displacement of this repair. The deltopectoral interval was loosely closed burying the cephalic vein with 0-Vicryl. Appropriate hemostasis was confirmed. Subcutaneous tissue was irrigated then closed using 2-0 Monocryl in a buried interrupted fashion. The skin was closed using 3-0 Monocryl in a buried subcuticular fashion. Skin glue was applied to the incision. A silver impregnated bandage was placed over the incision. The extremity was placed into a shoulder immobilizer. The patient awoke from anesthesia without complication and was taken to the recovery room in stable condition.
--- NOTE | 2020-09-09 17:23 | W.PM.PROGNOT ---
Date of Service Date of service: 09/09/20 Time of Service: 17:18 Assessment and Plan Assessment and plan (1) Tendonitis of long head of biceps brachii of right shoulder: Status: Acute (2) Contracture of right shoulder: Status: Acute (3) Arthritis of right glenohumeral joint: Status: Acute Assessment and plan: 80-year-old male postop day #0 status post right reverse total shoulder arthroplasty with contracture release and biceps tenodesis Complete 24 hours postoperative antibiotics Void trial. If unable to void, place celis and discontinue catheter AM postop day #1 Pain control-Multimodal as ordered. Physical therapy and Occupational Therapy ordered: Reverse TSA protocol. Should remove sling while in bed or resting. Recommend sling when ambulatory or out of home. Passive range of motion to the shoulder. Active range of motion elbow, wrist, and hand. May use upper extremity gently for all essential ADLs including active range of motion within a limited arc with light weightbearing. Continue mechanical DVT prophylaxis with SCDs and/or CURTIS hose Resume 81 mg ASA 24 hours postoperative as chemo dvt ppx Plan discharge home tomorrow with home health services and physical therapy as needed Subjective Subjective Interval history since last seen: Awake and comfortable Exam Narrative Exam Narrative: Resting comfortably in PACU Breathing nonlabored Right shoulder: Tolerates gentle passive range of motion without difficulty Sensation rating axillary, median, radial, ulnar nerves largely intact distally Motor block still in effect 2+ radial pulse Objective Last Vital Signs Temp 97.5 F L 09/09/20 09:30 Pulse 58 L 09/09/20 09:30 Resp 18 09/09/20 09:30 BP 134/70 09/09/20 09:30 Pulse Ox 98 09/09/20 09:30
[2020-09-09] MEDS: Mometasone 220 MCG 14 DOSE INHALER 1 PUFF IH (20:49)
[2020-09-09] MEDS: Lisinopril 20 MG TAB PO (20:49)
[2020-09-09] MEDS: Simvastatin 40 MG TAB PO (21:56)
[2020-09-09] MEDS: ceFAZolin 1 GM/50 ML BAG IVPB (23:35)
[2020-09-10 03:00] VITALS: BP 110/60; PULSE 68; RESP 18; TEMP 36.9; O2SAT 96
[2020-09-10] MEDS: Lactated Ringers 1,000 ML 100 ML IV (04:18)
--- NOTE | 2020-09-10 07:33 | DSE_ITS ---
Date of service: 09/10/20 Time of Service: 07:19 DS: Diagnosis Discharge Diagnosis (1) Tendonitis of long head of biceps brachii of right shoulder: Status: Acute (2) Contracture of right shoulder: Status: Acute (3) Arthritis of right glenohumeral joint: Status: Acute Discharge Plan Disposition Patient Disposition: HOME Condition: Stable Discharge Details Reason For Visit: Right shoulder replacement Admit Date/Time: 09/09/20 09:32 Admit Provider: Ej Pope Attending Provider: Ej Pope Primary Care Provider: Sukumar Horan Hospital Course Hospital Course: Right reverse TSA on 09/09/2020. Postoperative course uncomplicated. Home Meds and New Rx's Prescriptions: New naproxen 250 mg tablet 250 - 500 mg PO BID PRN (Reason: Moderate pain or swelling) Qty: 60 RF: 0 tramadol 50 mg Tablet 50 mg PO Q8H PRN PRN (Reason: severe pain) Qty: 12 RF: 0 Continued acetaminophen 650 mg tablet extended release 650 mg PO BID PRN RF: 0 Pulmicort Flexhaler 180 mcg/actuation aerosol powdr breath activated 180 mcg Inhalation BID Qty: 3 RF: 3 Trulicity 0.75 mg/0.5 mL pen injector 0.75 mg SC QWEEK Qty: 2 RF: 11 albuterol sulfate [Proventil HFA] 90 mcg/actuation HFA aerosol inhaler 2 puff Inhalation Q4H PRN Qty: 1 RF: 2 (DME) Blood Glucose Test 1 EACH strip 1 strip AD BID Qty: 300 RF: 4 metformin 1,000 mg tablet 1,000 mg PO BID Qty: 180 RF: 4 simvastatin 40 mg tablet 40 mg PO QHS Qty: 90 RF: 3 terbinafine HCl 250 mg tablet 250 mg PO DAILY Qty: 30 RF: 0 glipizide 2.5 mg tablet extended release 24hr 2.5 mg PO DAILY Qty: 90 RF: 3 lisinopril 20 mg tablet 20 mg PO BID Qty: 180 RF: 4 cyanocobalamin (vitamin B-12) 1,000 MCG tablet 1,000 mcg PO DAILY RF: 0 aspirin 81 MG tablet,delayed release (DR/EC) 81 mg PO BID Qty: 60 RF: 0 Discharge Instructions Additional Instructions: Surgery: Reverse shoulder replacement with contracture release and biceps tenodesis Activity: Non-weightbearing except light use allowed for ADLs. You should keep your arm at your side in a neutral position at all times except for gentle range of motion exercises, physical therapy and essential activities. You should use the sling whenever you are out of the house. You may have to adjust the abduction pillow or remove it for comfort. At home it is best to remove the sling and rest the arm on a pillow at your side or support the operative side with your other hand. A physical therapy prescription will be sent electronically to start in 2-3 weeks. Reverse TSA Protocol: Postoperative Weeks 0-6 ?Immobilization: Sling may be removed for therapeutic exercises, resting in bed or chair, and bathing ?Motion exercises: Pendulum exercises, elbow range- of-motion exercises, wrist [id number] exercises, and area loss prevention manager strengthening ?Restrictions: No active internal rotation or backwards extension Postoperative Weeks 6-12 ?Immobilization: Sling discontinued ?Motion exercises: Shoulder passive range of motion, advancing to active- assisted range of motion, and finally active range of motion with a goal of forward flexion to 90? and external rotation of 20? ?Strengthening exercises: Light, resisted forward flexion, external rotation, and abduction limited to isometric exercises and therapy bands with concentric motions only. Continue area loss prevention manager strengthening ?Restrictions: No resisted internal rotation or backwards extension. No scapular retraction exercises with therapy bands Postoperative Months 3-12 ?Motion exercises: Increase [id number]-yi-tdgoud exercises to achieve full motion, with passive stretching at end ranges ?Strengthening: Begin resisted, internal rotation and backwards extension initially with isometric exercises advancing to light therapy bands and then weights. Advance other shoulder strengthening exercises to include the rotator cuff, deltoid, and scapular stabilizers. Advance to functional strengthening, including plyometric exercises and core strengthening. Prescriptions: Resume Aspirin 81 mg 1 twice daily home medication Naproxen 250 mg take 1-2 every 12 hours with a meal as needed for moderate pain Tramadol 50 mg take 1 every 8 hours as needed for severe pain You may use [id number] Tylenol (acetaminophen) as needed for mild pain. These pain medications may be taken all at once or in different combinations as needed. Also, recommend Colace (docusate) as a stool softener as surgery and pain medicine cause constipation. Dressings: Leave dressing in place until follow-up. Keep clean and dry at all times. No showers please. Follow-up: 10-[address] Pope Please call the office during business hours with any questions or concerns. Let us know right away if you develop any redness, drainage, fevers, chest pain, or trouble breathing. Do not drink alcohol or drive for at least 24 hours after anesthesia. Referrals: Ej Pope MD [ [facility] STAFF PHYSICIAN] - Activity:: RTSA protocol Equipment/Supplies:: Shoulder immobilizer Diet:: As Tolerated Discharge Orders Discharge Orders: Discharge Order (Routine); Ordered 09/10/20 Ordered By: Ej Pope DS: Summary Time Spent with Patient providing and/or coordinating discharge services: Less than 30 minutes Status at Discharge Functional status at discharge: independent ambulation Overall status at discharge: patient is progressing back to baseline Mental Status: mental status grossly normal Speech and Movement: speech and movement normal Mood: congruent mood Affect: normal affect Exam Narrative Exam Narrative: Resting comfortably in bed Breathing nonlabored Right shoulder: Tolerates gentle passive range of motion without discomfort Sensation largely intact axillary, median, radial, ulnar nerves largely intact distally Motor block wearing off distally- intact about wrist and hand 2+ radial pulse Psych Mental Status: mental status grossly normal Speech and Movement: speech and movement normal Mood: congruent mood Affect: normal affect DS: Data Vitals/I&O Vitals and I&O: Vital Signs Temperature 97.5 F L 09/09/20 09:30 Pulse 58 L 09/09/20 09:30 Pulse Rhythm Regular 09/09/20 09:30 Respiratory Rate 18 09/09/20 09:30 Blood Pressure 134/70 09/09/20 09:30 Pulse Oximetry 98 09/09/20 09:30 Oxygen Delivery Method Room Air 09/09/20 09:30 Oxygen Flow Rate 0 09/09/20 09:30 Intake & Output 09/08/20 09/08/20 09/09/20 11:59 23:59 11:59 Weight 202 lb 0.012 oz 200 lb 2.876 oz [facility] Medical History Diabetes Hyperlipidemia Hypertension Knee pain Overweight Tinea pedis Surgical History Arthroplasty of knee 12/3/14 RIGHT KNEE Extraction of cataract 03/23 RIGHT 04/23 LEFT H/O detached retina repair 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 GALEANA Total replacement of hip (~2005) LEFT Family History Mother , 99 Diabetes Father , 92 Heart disease [place] Maternal Grandmother , 71 Diabetes Personal history of malignant neoplasm STOMACH Daughter Fibromyalgia Social History Smoking/Tobacco Use Status: Former Tobacco Use Quit Date: 05/02/75 Second Hand Exposure: Yes Smoking risk assessment performed?: Yes Alcohol Intake: current Alcohol Intake frequency: 0-2 drinks per day Alcohol type: beer, wine and hard liquor Drug use: Never Caregiver/Support person: No Household members: spouse Housing: house Pets and animals: No Sexually active: No Current gender identity: male What is your relationship status?: How often do you talk on the phone with friends or family?: once per week How often do you get together with friends or relatives?: decline to answer How often do you attend mandaeism or christianity services?: decline to answer Do you belong to any clubs or organized social groups?: yes Panel score (0-1 are the most socially isolated patients): 2 Laura/Anglican: [employer] Special laura needs: No
[2020-09-10 08:11] VITALS: BP 106/63; PULSE 63; RESP 17; TEMP 36.9; O2SAT 94
--- NOTE | 2020-09-10 08:25 | PT.INIE ---
Date of service: 09/10/20 Time of Service: 08:25 PT Notes Visit Reasons: RIGHT SHOULDER REPLACEMENT Physical Therapy Inpatient Initial Evaluation Date: 09/10/2020 Referring Doctor: Ej Pope MD PT Orders: PT CONSULT: Status post Ortho surgery. Reverse TSA protocol. Precautions: Fall. Standard. Follow reverse TSA protocol per orthopod. Patient Profile/Admitting Diagnosis: Russell is an 80-year-old [id number] male with right rotator cuff arthropathy, long head of biceps tendinopathy, and contracture S/P R revererse total shoulder arthroplasty, open biceps tenodesis, and open capsular contracture release on postoperative day 1. 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 GALEANA Total replacement of hip (~2005) LEFT Social History/Home Situation: Lives with in a private home with 3 steps to enter with a rail on the left side going up. There is an alternate ramp that he can use to get into the house. Independent with PLOF using no assistive device. Has had no falls in the past 12 months. Will have the support of his as he recovers at home. Retired religion windows application administrator. Equipment Owned/DME: [employer], [employer] Subjective: Agreeable to PT consult. Complains about being a little shaky as he stood up initially. Agreed to using front-wheeled walker for safety. Objective: General Observation: Sling in R UE. Mepilex Ag over surgical incision. Minimal swelling seen. No redness. Mental Status: Alert and oriented X4 Pain: None reported ROM: Right Upper Extremity: Passive shoulder Flexion up to 90 degrees. Passive shoulder abduction up to 80 degrees. Passive shoulder external rotation to 45 degrees. Passive shoulder internal rotation from 45 degrees to 10 degrees. Elbow flexion WFL. Active forearm supination up to 80 degrees. Wrist flexion WFL. Opening and closing of hand WFL. Left Upper Extremity: Shoulder Flexion WFL. Shoulder abduction WFL. Elbow flexion WFL. Wrist flexion WFL. Opening and closing of hand WFL. Right Lower Extremity: Hip flexion WFL. Hip abduction WFL. Knee flexion WFL. Ankle dorsiflexion WFL. Ankle plantarflexion WFL. Left Lower Extremity: Hip flexion WFL. Hip abduction WFL. Knee flexion WFL. Ankle dorsiflexion WFL. Ankle plantarflexion WFL. Strength: Right Upper Extremity: Shoulder flexors NT. Elbow flexors 2-/5. Forearm supinator 3-/5. Elbow extensors 2-/5. [employer] strong. Left Upper Extremity: Shoulder flexors 4/5. Shoulder abductors 4/5. Elbow flexors 5/5. Elbow extensors 5/5. [employer] strong. Right Lower Extremity: Hip flexors 4/5. Hip abductors 4/5. Knee flexors 5/5. Knee extensors 4/5. Ankle dorsiflexors 5/5. Ankle plantarflexors 5/5. Left Lower Extremity:Hip flexors 4/5. Hip abductors 4/5. Knee flexors 5/5. Knee extensors 4/5. Ankle dorsiflexors 5/5. Ankle plantarflexors 5/5. Sensation: Intact as to pain and pressure on bilateral lower extremities. Bed Mobility/Transfers: Sit to stand standby assist Stand to sit standby assist Bed to chair standby assist Chair to bed standby assist Gait: Guided patient through level surface ambulation of 200 feet + 100 feet feet using a single-point cane on the left side with no complaints of pain in the right shoulder. Denies dizziness, chest pain, and headache throughout activity. Stairs: Negotiated 6 x 4 inch steps and 4 x 6 inch steps while holding onto left rail going up and right rail and going down with step to gait pattern requiring only standby assist with no increase in pain complaint. Balance: Static Sitting: Normal Dynamic Sitting: Normal Static Standing: Fair Dynamic Standing: Fair THERA EX: Passsive ranging of R shoulder done for patient today x 10 reps for each planar movement without any increase in pain. Special Tests: Mobility Limitations Standardized Measure [facility] 6 clicks Basic Mobility Inpatient Short Form: Raw Score: 20 CMS Score: 36% deficit Informed Consent/Education: Patient instructed in purpose of PT consult and plan of care. Assessment: Russell demonstrates the need for the use of a single-point cane and sling in the on the right side for support for all mobility ADL performance to reduce fall risk and maximize independence at home. Patient presents with clinical signs and symptoms consistent with current/admitting diagnoses that have resulted to mobility limitations, gait instability, generalized weakness, and impairment of motor control as demonstrated by the following impairment level findings: 1. Decreased strength to right shoulder major muscle groups 2. Impaired standing balance 3. Impaired activity tolerance 4. Limitation of joint range of motion in right shoulder Impairments are contributing to the following functional limitations: 1. Increased dependence with transfers 2. Inability to safely ambulate without assistive device and physical assistance 3. Increase completion time for mobility ADL performance 4. Increased fall risk Patient is assessed as a 81374 moderate complexity based on the following: History: 80-year-old male with impairment level findings, functional limitations, and past medical history as indicated above Examination: Demonstrable impairment in strength, balance, and mobility level with underlying impairments and functional limitations as documented above Presentation:Evolving Decision Makin moderate complexity Goals: N/A. PT evaluation and 1 treatment session only for functional mobility training and HEP instruction. Plan of Care/Treatment Plan: N/A. PT evaluation and 1 treatment session only for functional mobility training and HEP instruction. DISCHARGE RECOMMENDATIONS: Home when medically cleared by orthopedic surgeon. Home exercises for the elbow, forearm, wrist, and hand have been provided with patient demonstrating mastery as of this morning. Outpatient physical therapy services in order to facilitate return to premorbid independent level. TREATMENT CODE/TIME: 36661 x 25 minutes, 54070 x 10 minutes, 83077 x 15 minutes beginning at 8:25 AM. Thank you for the opportunity to participate in the care of this patient. Gloria Nation PT, DPT, CLT [facility] [place], [place]
[2020-09-10] MEDS: ceFAZolin 1 GM/50 ML BAG IVPB (08:58)
[2020-09-10] MEDS: metFORMIN 500 MG TAB 1000 MG PO (08:59)
[2020-09-10] MEDS: Cyanocobalamin 500 MCG TAB 1000 MCG PO (08:59)
[2020-09-10] MEDS: Lisinopril 20 MG TAB PO (08:59)
[2020-09-10] MEDS: Aspirin E.C. 81 MG TABEC PO (08:59)
--- NOTE | 2020-09-10 09:06 | OTIE_ITS ---
Occupational Therapy Notes Inpatient Occupational Therapy Evaluation Date: 09/10/20 Referring Doctor: Ej Pope MD OT Orders: s/p (L) RTS Precautions: Fall, Standard, Full PATIENT PROFILE/ADMITTING DIAGNOSIS: Pt is a an 80 year old male who was seen by Dr. Pope for a 1. Reverse total shoulder arthroplasty, 2. Open biceps tenodesis, 3. Open capsular contracture release performed on 09/10/20. 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 GALEANA Total replacement of hip (~2005) LEFT Social History/Home Situation: Pt states that his baseline level of function is (I). He lives in a private home with his and states that he has a tu b shower where he performs his bathing routines. He likes to be (I) and travel which he has been restricted lately due to Covid. He states that he is (I) with functional mobility and community mobility at this time. He has been restricted in his (R) shoulder for so long that he has adapted and modified as needed. 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 He was agreeable to OT session and notes that he is ready to return home. OBJECTIVE: General Observation: Pleasant and agreeable to OT session. Mental Status: A&Ox4 Pain: no c/o pain during OT session ROM: RUE NT L UE AROM WFL *Pt is (L) hand dominant. STRENGTH: RUE NT functionally, pt does have a strong business information analyst LUE Shoulder flexion 4-/5, bicep 5/5, tricep 4+/5, business information analyst is strong. FUNCTIONAL MOBILITY/ADLS: Self care Training [id number]: OT educated and trained pt in adaptive equipment including sock aid and one handed techniques for facilitation of increased functional (I) and pt was able to demonstrate this (I), education was provided in long handled shoe horn, dressing stick for UE/LE dressing, performance of don and doffing shirt with in first, out last technique education on don and doffing sling and Restrictions for surgical intervention and functional (I) tolerance. Pt was able to demonstrate adaptive equipment with Mod (I) techniques. BALANCE: Static sitting Normal Dynamic Sitting Normal SPECIAL TESTS: Daily Activity Limitations Standardized Measure [facility] AM -PAC ?6 clicks? Daily Activity Inpatient Short Form: Raw score: 20 Standardized score: 42.03 CMS score: 38.32% INFORMED CONSENT/EDUCATION: Pt instructed in purpose of OT Consult and plan of care. ASSESSMENT: Patient is a 80-year-old male referred to occupational therapy services with diagnosis of 1. Reverse total shoulder arthroplasty, 2. Open biceps tenodesis, 3. Open capsular contracture release performed on 09/10/20. Patient presents with clinical signs and symptoms consistent with dx, as demonstrated by the following impairment level findings/functional limitations: Impairments in ADL/IaDL and leisure activities, decreased functional ROM of (R) UE, pain in (R) UE, decreased gross and fine motor control of (R) UE, restrictions per RTS protocol, decreased ability to perform his ADLS (I) without adaptive equipment. AMPAC score 20 Patient is assessed as a Low 34642 complexity based on the following: History: see above Examination: see functional limitations as noted above Presentation: evolving Decision Making: AMPAC score 20 GOALS Seen for OT consult only. PLAN OF CARE/TREATMENT PLAN: Discharge from skilled OT services. DISCHARGE RECOMMENDATIONS OT recommends that pt return home when medically cleared per MD. TREATMENT TIME/MINUTES/CODES 74963, 55695, 27 minutes (09:10) Hannah Acosta OTR/[facility]
[2020-09-10 11:25] VITALS: BP 103/63; PULSE 62; RESP 17; TEMP 36.5; O2SAT 94
== END 2020-09-10 12:14 | disposition home or self-care (01) | DRG 483 ==
LOC: PDS 17:26 → MS 17:37
PROVIDERS: Admitting Provider Student in an Organized Health Care Education/Training Program; PCP Family Medicine; Visit Provider Student in an Organized Health Care Education/Training Program
PROC: 0RRJ00Z Replacement of Right Shoulder Joint with Reverse Ball and Socket Synthetic Substitute, Open Approach (ICD-10-PCS; CPT 23472; principal; 2020-09-09 09:45)
DX: M19.011 Primary osteoarthritis, right shoulder (principal); M75.21 Bicipital tendinitis, right shoulder; M24.511 Contracture, right shoulder; I10 Essential (primary) hypertension; E78.5 Hyperlipidemia, unspecified; J44.9 Chronic obstructive pulmonary disease, unspecified; E11.9 Type 2 diabetes mellitus without complications; E53.8 Deficiency of other specified B group vitamins; H90.3 Sensorineural hearing loss, bilateral; Z79.84 Long term (current) use of oral hypoglycemic drugs
CPT/HCPCS: 23472; 23430; 23020; 76942; 97110; 97162; 97165; 97530; 97535; NC; 73030; J0131; J0690; J1100; J1885; J2001; J2370; J2405

== ENCOUNTER 2020-09-21 09:52 | Outpatient (CLI) | payer MEDICARE, BC, SELFPAY ==
--- NOTE | 2020-09-21 09:30 | DI.RAD_ITS ---
EXAM: XR SHOULDER RT COMPLETE 2+V CLINICAL HISTORY: f/u. TECHNIQUE: 2D digital imaging was performed. COMPARISON: CR XR SHOULDER RT COMPLETE 2+V from 09/09/2020 FINDINGS: BONES: There are stable post operative changes present. No fracture or dislocation. JOINTS: The joint spaces are well maintained. No joint effusion is present. SOFT TISSUE: Normal. IMPRESSION: Stable postoperative changes. DATA REPOSITORY: RADIATION DOSE DELIVERED:
== END 2020-09-21 09:53 | disposition home or self-care (01) ==
LOC: DIORS 09:52
PROVIDERS: PCP Family Medicine; Referring Provider Family Medicine; Visit Provider Student in an Organized Health Care Education/Training Program
DX: Z96.611 Presence of right artificial shoulder joint (principal); Z47.89 Encounter for other orthopedic aftercare; M75.21 Bicipital tendinitis, right shoulder; M19.011 Primary osteoarthritis, right shoulder; M24.511 Contracture, right shoulder
CPT/HCPCS: 73030

== ENCOUNTER 2020-11-09 10:50 | Outpatient (CLI) | payer MEDICARE, BC, SELFPAY ==
--- NOTE | 2020-11-09 09:00 | DI.RAD_ITS ---
EXAM: XR SHOULDER RT COMPLETE 2+V INDICATION: right shoulder. COMPARISON: CR XR SHOULDER RT COMPLETE 2+V from 09/21/2020 TECHNIQUE: 2D digital imaging was performed. FINDINGS: There has been no change in the alignment of the reverse shoulder prosthesis. No abnormal bony luce ncies are seen. DATA REPOSITORY: RADIATION DOSE DELIVERED:
== END 2020-11-09 10:51 | disposition home or self-care (01) ==
LOC: DIORS 10:50
PROVIDERS: PCP Family Medicine; Referring Provider Family Medicine; Visit Provider Student in an Organized Health Care Education/Training Program
DX: Z47.89 Encounter for other orthopedic aftercare (principal); M75.21 Bicipital tendinitis, right shoulder; M19.011 Primary osteoarthritis, right shoulder; M24.511 Contracture, right shoulder
CPT/HCPCS: 73030

== ENCOUNTER → 2021-02-02 09:05 | Outpatient (BNVA) | payer MEDICARE, BC, SELFPAY | PROVIDERS: PCP Family Medicine; Referring Provider Family Medicine; Visit Provider Student in an Organized Health Care Education/Training Program | DX: Z47.89 Encounter for other orthopedic aftercare (principal); M75.21 Bicipital tendinitis, right shoulder; M19.011 Primary osteoarthritis, right shoulder; M24.511 Contracture, right shoulder | CPT/HCPCS: 99213 ==

== ENCOUNTER 2021-02-09 03:25 | Outpatient (CLI) | payer MEDICARE, BC, SELFPAY ==
[2021-02-09 11:00] LABS: Iron 75 ug/dL (65-175)
[2021-02-09 11:26] LABS: Ferritin 56 ng/mL (26-388); Vitamin B12 515 pg/mL (193-986)
== END 2021-02-09 03:26 | disposition home or self-care (01) ==
PROVIDERS: PCP Family Medicine; Visit Provider Family Medicine
DX: E11.9 Type 2 diabetes mellitus without complications (principal); D64.9 Anemia, unspecified; Z79.899 Other long term (current) drug therapy
CPT/HCPCS: 36415; 82607; 82728; 83540

== ENCOUNTER 2021-08-31 10:16 | Outpatient (CLI) | payer MEDICARE, SELFPAY ==
--- NOTE | 2021-08-31 08:45 | DI.RAD_ITS ---
Exam(s) XR SHOULDER RT COMPLETE 2+V EXAM: XR SHOULDER RT COMPLETE 2+V CLINICAL HISTORY: right shoulder f/u TECHNIQUE: COMPARISON: CR XR SHOULDER RT COMPLETE 2+V from 11/09/2020 FINDINGS: Three views were obtained. There is a reverse shoulder prosthesis in position. The components appea r well seated. No other significant abnormality seen. IMPRESSION: RADIATION DOSE DELIVERED: Total DLP
== END 2021-08-31 10:17 | disposition home or self-care (01) ==
LOC: DIORS 10:16
PROVIDERS: PCP Family Medicine; Referring Provider Family Medicine; Visit Provider Student in an Organized Health Care Education/Training Program
DX: M75.21 Bicipital tendinitis, right shoulder (principal); Z47.1 Aftercare following joint replacement surgery; Z96.611 Presence of right artificial shoulder joint
CPT/HCPCS: 99213; 73030

== ENCOUNTER 2021-09-21 01:52 | Outpatient (CLI) | payer MEDICARE, SELFPAY ==
[2021-09-21 12:31] LABS: Hemoglobin A1C 8.6 % (<5.7)
[2021-09-21 13:17] LABS: CREATININE 1.1 mg/dL (0.70-1.30); Calculated LDL 99 mg/dL (<100); Cholesterol 179 mg/dL (<200); HDL Cholesterol 53 mg/dL (40-60); Potassium 4.9 mmol/L (3.5-5.1); Triglyceride 139 mg/dL (<150)
== END 2021-09-21 01:53 | disposition home or self-care (01) ==
LOC: LBO 01:52
PROVIDERS: PCP Family Medicine; Visit Provider Family Medicine
DX: I10 Essential (primary) hypertension (principal); E78.5 Hyperlipidemia, unspecified; R73.09 Other abnormal glucose
CPT/HCPCS: 36415; 80061; 82565; 83036; 84132

== ENCOUNTER 2023-11-21 09:14 | Outpatient (CLI) | payer MEDICARE, SELFPAY ==
[2023-11-21 13:17] LABS: Hemoglobin A1C 7.3 % (<5.7)
[2023-11-21 13:26] LABS: CREATININE 1.1 mg/dL (0.70-1.30); Estimated GFR 66.19 (mL/min/1.73m2); Potassium 4.4 mmol/L (3.5-5.1)
== END 2023-11-21 09:15 | disposition home or self-care (01) ==
LOC: LOS 09:15
PROVIDERS: PCP Family Medicine; Referring Provider Family Medicine; Visit Provider Family Medicine
DX: E11.51 Type 2 diabetes mellitus with diabetic peripheral angiopathy without gangrene (principal); I70.209 Unspecified atherosclerosis of native arteries of extremities, unspecified extremity; I10 Essential (primary) hypertension
CPT/HCPCS: 36415; 82565; 83036; 84132

== ENCOUNTER 2025-03-19 08:24 | Outpatient (CLI) | payer MEDICARE, SELFPAY ==
[2025-03-19 13:21] LABS: Estimated GFR 65.38 (mL/min/1.73m2); Potassium 4.7 mmol/L (3.5-5.1); Vitamin B12 496 pg/mL (193-986)
== END 2025-03-19 08:25 | disposition home or self-care (01) ==
LOC: LOS 08:24
PROVIDERS: PCP Family Medicine; Visit Provider Family Medicine
DX: D64.9 Anemia, unspecified (principal); I10 Essential (primary) hypertension
CPT/HCPCS: 36415; 82565; 82607; 84132